=== PATIENT | male | born 1950 | race Caucasian/White ===

== ENCOUNTER 2018-04-09 09:00 | Inpatient (IN) ==
[~2018-04-09 09:00] MED LIST: ASPIRIN EC 81 MG TABLET PO SCH; CARVEDILOL 3.125 MG TABLET PO SCH; CHLORHEXIDINE 0.12% ORAL RINSE 60 ML BOTTLE SWISH/SPIT SCH; CHLORHEXIDINE 4% SOLN 118 ML BOTTLE TOP SCH; DEXTROSE 50% 25 GM/50 ML VIAL IV PRN; GABAPENTIN 100 MG CAPSULE PO SCH; GLUCAGON 1 MG VIAL IM PRN; LEVOTHYROXINE 125 MCG TABLET PO SCH; LISINOPRIL 20 MG TABLET PO SCH; MAGNESIUM OXIDE 400 MG TABLET PO SCH; METHYLDOPA 250 MG TABLET PO SCH; NIFEDIPINE 30 MG PO SCH; PANTOPRAZOLE 40 MG TABLET PO SCH; PITAVASTATIN 2 MG TABLET PO SCH; SODIUM CHLORIDE 0.9% 1,000 ML IV SCH
[2018-04-09 10:18] LABS: Basophils % 0.5 % (0.0-0.8); Eosinophils # 0.2 10*3/uL (0.0-0.87); Eosinophils % 2.7 % (0.00-10.9); Hematocrit 43.4 VOL% (42.0-52.0); Immature Granulocytes % 0.3 %; Immature Granulocytes Absolute 0.02 #; Lymphocytes # 1.5 10*3/uL (1.4-4.0); Lymphocytes % 25.8 % (21.2-54.2); Mean Corpuscular HGB Conc 34.6 GM/DL (32-36); Mean Corpuscular Hemoglobin 31 PG (27-34); Mean Corpuscular Volume 89.1 FL (87-102); Mean Platelet Volume 9.1 FL (9.6-12.0); Monocytes # 0.7 10*3/uL (0.11-0.8); Monocytes % 11.3 % (1.7-12.7); Neutrophils # 3.5 10*3/uL (1.4-7.4); Neutrophils % 59.4 % (38.7-73.9); Platelet Count 215 T/CUMM (130-400); Red Blood Count 4.87 MC/CUMM (3.8-5.5); Red Cell Distribution Width 12.1 % (9.3-17.3); White Blood Count 5.9 T/CUMM (4-12)
[2018-04-09 10:28] LABS: ABG Base Excess 2.1 MMOL/L (-2.5-2.5); ABG HCO3 26.2 MMOL/L (20-26); ABG Oxygen Saturation 93.4 % (95-100); ABG PCO2 44.8 MM HG (35-48); ABG PH 7.397 (7.35-7.45); ABG PO2 68.8 MM HG (80-95); ABG TCO2 23.4 MMOL/L (23-27)
[2018-04-09 10:43] LABS: Albumin 3.3 G/DL (3.4-5.0); Bilirubin,Total 0.5 MG/DL (0.2-1.0); Calcium 8.8 MG/DL (8.5-10.1); Osmolality,Calculated 284.1 MOS/KG (273-304); Potassium 4.5 MMOL/L (3.5-5.1); Total Protein 6.1 G/DL (6.4-8.3)
[2018-04-09] MEDS ORDERED: GLUCAGON 1 MG VIAL IM PRN (15:06)
[2018-04-09] MEDS ORDERED: DEXTROSE 50% 25 GM/50 ML VIAL IV PRN (15:06)
[2018-04-09] MEDS: CHLORHEXIDINE 4% SOLN 118 ML BOTTLE TOP SCH ×2 (15:22→21:30)
[2018-04-09] MEDS ORDERED: SODIUM CHLORIDE 0.9% 1,000 ML IV SCH (15:30)
[2018-04-09] MEDS: PANTOPRAZOLE 40 MG TABLET PO SCH (16:25)
[2018-04-09] MEDS ORDERED: ASPIRIN EC 81 MG TABLET PO SCH (21:00)
[2018-04-09] MEDS: METHYLDOPA 250 MG TABLET PO SCH (21:23)
[2018-04-09] MEDS: GABAPENTIN 300 MG CAPSULE PO SCH (21:23)
[2018-04-09] MEDS: CARVEDILOL 3.125 MG TABLET PO SCH (21:23)
[2018-04-09] MEDS: LISINOPRIL 20 MG TABLET PO SCH (21:23)
[2018-04-09] MEDS: CHLORHEXIDINE 0.12% ORAL RINSE 60 ML BOTTLE SWISH/SPIT SCH (21:24)
[2018-04-09] MEDS ORDERED: ZOLPIDEM 5 MG TABLET PO ONE (21:30)
[2018-04-10] MEDS: CHLORHEXIDINE 4% SOLN 118 ML BOTTLE TOP SCH ×2 (05:00→08:01)
[2018-04-10] MEDS ORDERED: HEPARIN/NACL 0.9% 2 UNITS/ML 500 ML IV ONE (05:29)
[2018-04-10] MEDS ORDERED: PHENYLEPHRINE DRIP 20 MG/250 ML PREMIX IV ONE (05:29)
[2018-04-10] MEDS ORDERED: CALCIUM CHLORIDE 1,000 MG/10 ML VIAL IV ONE (05:29)
[2018-04-10] MEDS ORDERED: SODIUM CHLORIDE 0.9% 100 ML IV ONE (05:30)
[2018-04-10] MEDS ORDERED: VECURONIUM 10 MG VIAL IV ONE (05:30)
[2018-04-10] MEDS ORDERED: MIDAZOLAM 10 MG/2 ML VIAL ONE (05:30)
[2018-04-10] MEDS ORDERED: LACTATED RINGERS 1,000 ML IV ONE (05:30)
[2018-04-10] MEDS ORDERED: ETOMIDATE 40 MG/20 ML VIAL IV ONE (05:30)
[2018-04-10] MEDS ORDERED: PANTOPRAZOLE 40 MG TABLET PO ONE (05:30)
[2018-04-10] MEDS ORDERED: AMINOCAPROIC ACID 5,000 MG/20 ML VIAL IV ONE (05:30)
[2018-04-10] MEDS ORDERED: DIAZEPAM 5 MG TABLET PO ONE (05:30)
[2018-04-10] MEDS ORDERED: SUFentanil 250 MCG/5 ML AMP ONE (05:30)
[2018-04-10] MEDS ORDERED: NITROGLYCERIN DRIP 50 MG/250 ML BOTTLE IV ONE (05:30)
[2018-04-10] MEDS ORDERED: SODIUM CHLORIDE 0.9% 1,000 ML IV ONE (05:30)
[2018-04-10] MEDS ORDERED: SODIUM CHLORIDE 0.9% 250 ML IV ONE (05:30)
[2018-04-10] MEDS ORDERED: ePHEDrine 50 MG/ML AMP ONE (05:31)
[2018-04-10] MEDS ORDERED: PAPAVERINE 60 MG/2 ML VIAL ONE (05:35)
[2018-04-10] MEDS ORDERED: VANCOMYCIN 1,000 MG VIAL ONE (05:36)
[2018-04-10] MEDS: METHYLDOPA 250 MG TABLET PO SCH ×2 (05:55→08:01)
[2018-04-10] MEDS: LISINOPRIL 20 MG TABLET PO SCH ×2 (05:55→08:01)
[2018-04-10] MEDS: CARVEDILOL 3.125 MG TABLET PO SCH ×2 (05:56→08:01)
[2018-04-10] MEDS ORDERED: LEVOTHYROXINE 125 MCG TABLET PO SCH (06:30)
[2018-04-10] MEDS: CEFUROXIME INJ 1,500 MG in SYRINGE 1 EACH IV ONE ×2 (07:20→08:02)
[2018-04-10 07:48] LABS: ABG Base Excess 2.4 MMOL/L (-2.5-2.5); ABG HCO3 26.6 MMOL/L (20-26); ABG Oxygen Saturation 99.8 % (95-100); ABG PCO2 39.7 MM HG (35-48); ABG PH 7.435 (7.35-7.45); ABG TCO2 22.8 MMOL/L (23-27); Glucose Heart Surgery 94 MG/DL (74-106); Hematocrit Heart Surgery 44.2 PERCENT (42-52); Hemoglobin Heart Surgery 14.4 G/DL (14.0-18.0); Ionized Calcium Arterial 1.15 MMOL/L (1.21-1.46); PCO2 Patient Temp Arterial 39.7 MMHG; PH Patient Temp Arterial 7.435; Patient Temperature 37 CELCIUS; Potassium Heart/CVR 3.9 MMOL/L (3.5-5.1); Sodium Heart/CVR 141 MMOL/L (135-145)
[2018-04-10] MEDS: GABAPENTIN 300 MG CAPSULE PO SCH (08:01)
[2018-04-10] MEDS: CHLORHEXIDINE 0.12% ORAL RINSE 60 ML BOTTLE SWISH/SPIT SCH ×2 (08:01→20:54)
[2018-04-10] MEDS: PANTOPRAZOLE 40 MG TABLET PO SCH (08:02)
[2018-04-10 08:28] LABS: Apearance,Urine CLEAR (Clear); Bilirubin,Urine Negative (Negative); Blood, Urine Negative (Negative); Glucose,Urine (UA) Negative (Negative); Ketones,Urine Negative (Negative); Mucus,Urine Occasional /LPF (Occasional); Nitrite,Urine Negative (Negative); Protein,Urine Negative; RBC,Urine 1 /HPF (0-4); Urine Color Yellow (Yellow); Urine Specific Gravity 1.013 (1.001-1.035); Urine Urobilinogen < 2.0 EU/DL (0.2-1.0); WBC,Urine <1 /HPF (0-6)
[2018-04-10] MEDS ORDERED: MAGNESIUM OXIDE 400 MG TABLET PO SCH (09:00)
[2018-04-10] MEDS ORDERED: PITAVASTATIN 2 MG TABLET PO SCH (09:00)
[2018-04-10 09:05] LABS: Hematocrit Heart Surgery 30.9 PERCENT (42-52); PCO2 Patient Temp Venous 35.8 MM HG; PH Patient Temp Venous 7.467; PO2 Patient Temp Venous 40.1 MM HG; Potassium Heart/CVR 4.7 MMOL/L (3.5-5.1); VBG Base Excess 2.4 MEQ/L (0-4); VBG HCO3 26.3 MEQ/L (24-28); VBG Oxygen Saturation 83.2 %; VBG PCO2 39.4 MMHG (41-51); VBG PH 7.437
[2018-04-10] MEDS ORDERED: FAMOTIDINE 20 MG/2 ML VIAL IV ONE (09:17)
[2018-04-10] MEDS ORDERED: diphenhydrAMINE 50 MG/1 ML VIAL ONE (09:17)
[2018-04-10 09:36] LABS: Hematocrit Heart Surgery 34.4 PERCENT (42-52); Hemoglobin Heart Surgery 11.2 G/DL (14.0-18.0); PCO2 Patient Temp Venous 29.9 MM HG; PH Patient Temp Venous 7.53; PO2 Patient Temp Venous 36.2 MM HG; Potassium Heart/CVR 4.6 MMOL/L (3.5-5.1); VBG Base Excess 2.8 MEQ/L (0-4); VBG HCO3 26.6 MEQ/L (24-28); VBG Oxygen Saturation 83.4 %; VBG PCO2 34.6 MMHG (41-51); VBG PH 7.484; VBG PO2 44.6 MMHG (17-40)
[2018-04-10] MEDS ORDERED: PHENYLEPHRINE DRIP 40 MG/250 ML PREMIX IV ONE (10:08)
[2018-04-10] MEDS ORDERED: CALCIUM CHLORIDE 1,000 MG/10 ML SYRINGE IV ONE (10:08)
[2018-04-10] MEDS ORDERED: SODIUM BICARBONATE 50 MEQ/50 ML SYRINGE IV ONE ×2 (10:09→10:21)
[2018-04-10] MEDS ORDERED: MAGNESIUM SULFATE 10 GM/20 ML VIAL IV ONE (10:21)
[2018-04-10] MEDS ORDERED: ALBUMIN 25% 25 GM/100 ML VIAL IV ONE (10:21)
[2018-04-10] MEDS ORDERED: PROTAMINE SULFATE 250 MG/25 ML VIAL IV ONE (10:21)
[2018-04-10] MEDS ORDERED: DEXTROSE 5% KCL 20 MEQ 20 MEQ/1,000 ML BAG IV ONE (10:21)
[2018-04-10] MEDS ORDERED: methylPREDNISolone SOD SUC 1,000 MG/8 ML VIAL ONE (10:22)
[2018-04-10] MEDS ORDERED: PROTAMINE SULFATE 50 MG/5 ML VIAL IV ONE (10:22)
[2018-04-10] MEDS ORDERED: FUROSEMIDE 20 MG/2 ML VIAL ONE (10:22)
[2018-04-10] MEDS ORDERED: MANNITOL 12.5 GM/50 ML VIAL IV ONE (10:22)
[2018-04-10] MEDS ORDERED: HEPARIN 10,000 UNIT/10 ML VIAL ONE (10:22)
[2018-04-10 10:30] LABS: ABG Base Excess 2.6 MMOL/L (-2.5-2.5); ABG HCO3 26.7 MMOL/L (20-26); ABG Oxygen Saturation 99.7 % (95-100); ABG PCO2 36.6 MM HG (35-48); ABG PH 7.462 (7.35-7.45); Glucose Heart Surgery 182 MG/DL (74-106); Hematocrit Heart Surgery 37.7 PERCENT (42-52); Hemoglobin Heart Surgery 12.3 G/DL (14.0-18.0); Ionized Calcium Arterial 1.03 MMOL/L (1.21-1.46); PCO2 Patient Temp Arterial 36.6 MMHG; PH Patient Temp Arterial 7.462; Patient Temperature 37 CELCIUS; Potassium Heart/CVR 4.4 MMOL/L (3.5-5.1); Sodium Heart/CVR 137 MMOL/L (135-145)
[2018-04-10] MEDS ORDERED: THROMBIN TOPICAL (RECOMBINANT) 5,000 UNIT VIAL TOP ONE (10:31)
[2018-04-10] MEDS ORDERED: POTASSIUM CHLORIDE RIDER 100 ML IV ONE (10:56)
[2018-04-10] MEDS: LACTATED RINGERS 1,000 ML IV PRN ×2 (11:30→14:28)
[2018-04-10] MEDS ORDERED: SEVOFLURANE 1 UNIT/15 MINUTE INH ONE (11:33)
[2018-04-10] MEDS ORDERED: LACTATED RINGERS 250 ML IV PRN (11:35)
[2018-04-10] MEDS ORDERED: NITROPRUSSIDE 100 MG in DEXTROSE 5% 250 ML IV PRN (11:35)
[2018-04-10] MEDS ORDERED: SODIUM CHLORIDE 0.45% 1,000 ML IV SCH ×2 (11:35)
[2018-04-10] MEDS ORDERED: ACETAMINOPHEN 650 MG SUPP RECTAL PRN (11:35)
[2018-04-10] MEDS ORDERED: MAGNESIUM SULF RIDER 2 GM in PREMIX 1 EACH IV PRN (11:35)
[2018-04-10] MEDS ORDERED: PHENYLEPHRINE DRIP 40 MG/250 ML PREMIX IV PRN (11:35)
[2018-04-10] MEDS ORDERED: DEXTROSE 50% 25 GM/50 ML VIAL IV PRN ×2 (11:35)
[2018-04-10] MEDS ORDERED: MIDAZOLAM 10 MG/2 ML VIAL IV PRN (11:35)
[2018-04-10] MEDS ORDERED: VECURONIUM 10 MG VIAL IV PRN ×2 (11:35)
[2018-04-10] MEDS ORDERED: INSULIN REGULAR 100 UNIT/ML IV PRN (11:35)
[2018-04-10] MEDS ORDERED: MORPHINE 10 MG/1 ML VIAL IV PRN (11:35)
[2018-04-10] MEDS ORDERED: MAGNESIUM SULF RIDER 4 GM in PREMIX 1 EACH IV PRN (11:35)
[2018-04-10] MEDS ORDERED: MIDAZOLAM 2 MG/2 ML VIAL IV PRN (11:35)
[2018-04-10] MEDS ORDERED: CALCIUM CHLORIDE 1,000 MG/10 ML SYRINGE IV PRN (11:35)
[2018-04-10] MEDS ORDERED: INSULIN REGULAR 100 UNIT/ML IV ONE (11:35)
[2018-04-10] MEDS ORDERED: POTASSIUM CHLORIDE RIDER 10 MEQ in PREMIX 1 EACH IV PRN (11:35)
[2018-04-10] MEDS ORDERED: ONDANSETRON 4 MG/2 ML VIAL IV PRN (11:35)
[2018-04-10] MEDS ORDERED: INSULIN REGULAR DRIP 100 ML IV SCH (11:35)
[2018-04-10] MEDS ORDERED: NITROPRUSSIDE 50 MG/2 ML VIAL ONE (11:39)
[2018-04-10] MEDS: KETOROLAC 30 MG/1 ML VIAL IV SCH ×3 (11:56→23:15)
[2018-04-10 12:10] LABS: ABG Base Excess 1.3 MMOL/L (-2.5-2.5); ABG Oxygen Saturation 93.3 % (95-100); ABG PCO2 41.6 MM HG (35-48); ABG PH 7.414 (7.35-7.45); ABG PO2 74.3 MM HG (80-95); ABG TCO2 27.3 MMOL/L (23-27); Glucose Heart Surgery 131 MG/DL (74-106); Hemoglobin Heart Surgery 12.4 G/DL (14.0-18.0); Potassium Heart/CVR 3.4 MMOL/L (3.5-5.1)
[2018-04-10 12:13] LABS: Basophils % 0.2 % (0.0-0.8); Eosinophils # 0.1 10*3/uL (0.0-0.87); Eosinophils % 0.4 % (0.00-10.9); Hematocrit 33.6 VOL% (42.0-52.0); Hemoglobin 11.7 GM/DL (14.0-18.0); Immature Granulocytes Absolute 0.11 #; Lymphocytes # 0.9 10*3/uL (1.4-4.0); Lymphocytes % 7.5 % (21.2-54.2); Mean Corpuscular HGB Conc 34.8 GM/DL (32-36); Mean Corpuscular Hemoglobin 32 PG (27-34); Mean Corpuscular Volume 90.3 FL (87-102); Mean Platelet Volume 9.3 FL (9.6-12.0); Monocytes # 0.6 10*3/uL (0.11-0.8); Monocytes % 4.8 % (1.7-12.7); Neutrophils # 9.8 10*3/uL (1.4-7.4); Neutrophils % 86.1 % (38.7-73.9); Platelet Count 176 T/CUMM (130-400); Red Blood Count 3.72 MC/CUMM (3.8-5.5); Red Cell Distribution Width 12.2 % (9.3-17.3); White Blood Count 11.4 T/CUMM (4-12)
[2018-04-10 12:22] LABS: INR 1.1; PT Patient Result 11.4 SECS; Partial Thromboplastin Time 28.5 SECS (0-40)
[2018-04-10] MEDS: POTASSIUM CHLORIDE RIDER 20 MEQ in PREMIX 1 EACH IV PRN ×3 (12:43→21:39)
[2018-04-10 12:52] LABS: CKMB % 5.6 %
[2018-04-10 13:27] LABS: Albumin 3.1 G/DL (3.4-5.0); Calcium 8.9 MG/DL (8.5-10.1); Osmolality,Calculated 289.8 MOS/KG (273-304); Potassium 3.6 MMOL/L (3.5-5.1); Total Protein 5.5 G/DL (6.4-8.3)
[2018-04-10 13:57] LABS: ABG Base Excess 3.2 MMOL/L (-2.5-2.5); ABG HCO3 27.2 MMOL/L (20-26); ABG Oxygen Saturation 96.5 % (95-100); ABG PCO2 43.8 MM HG (35-48); ABG PH 7.416 (7.35-7.45); ABG PO2 85.8 MM HG (80-95); ABG TCO2 24.9 MMOL/L (23-27); Glucose Heart Surgery 161 MG/DL (74-106); Hematocrit Heart Surgery 37.5 PERCENT (42-52); Hemoglobin Heart Surgery 12.2 G/DL (14.0-18.0); Potassium Heart/CVR 4.5 MMOL/L (3.5-5.1)
[2018-04-10] MEDS: ALBUMIN 5% 12.5 GM in PREMIX 1 EACH IV PRN (16:55)
[2018-04-10] MEDS: MORPHINE 4 MG/1 ML VIAL IV PRN ×2 (16:56→20:21)
[2018-04-10 19:25] LABS: ABG Base Excess 1.5 MMOL/L (-2.5-2.5); ABG HCO3 25.7 MMOL/L (20-26); ABG Oxygen Saturation 97.7 % (95-100); ABG PCO2 43.7 MM HG (35-48); ABG PH 7.394 (7.35-7.45); ABG TCO2 23.8 MMOL/L (23-27); Glucose Heart Surgery 172 MG/DL (74-106); Hematocrit Heart Surgery 35.2 PERCENT (42-52); Hemoglobin Heart Surgery 11.4 G/DL (14.0-18.0); Potassium Heart/CVR 4.5 MMOL/L (3.5-5.1)
[2018-04-10] MEDS: CEFUROXIME INJ 1,500 MG in SYRINGE 1 EACH IV SCH (19:46)
[2018-04-10] MEDS ORDERED: FUROSEMIDE 40 MG/4 ML VIAL IV ONE (19:53)
[2018-04-10 19:58] LABS: CKMB % 6.2 %
[2018-04-10] MEDS: INSULIN REGULAR 100 UNIT/ML SUBCUT SCH ×2 (20:14→23:45)
[2018-04-10 21:31] LABS: ABG Base Excess 1.8 MMOL/L (-2.5-2.5); ABG PCO2 44.8 MM HG (35-48); ABG PH 7.391 (7.35-7.45); ABG PO2 85.3 MM HG (80-95); ABG TCO2 24.1 MMOL/L (23-27); Glucose Heart Surgery 183 MG/DL (74-106); Hematocrit Heart Surgery 37.3 PERCENT (42-52); Hemoglobin Heart Surgery 12.1 G/DL (14.0-18.0); Potassium Heart/CVR 4.4 MMOL/L (3.5-5.1)
[2018-04-11 00:28] LABS: ABG Base Excess 2.2 MMOL/L (-2.5-2.5); ABG HCO3 26.3 MMOL/L (20-26); ABG Oxygen Saturation 95.9 % (95-100); ABG PCO2 44.8 MM HG (35-48); ABG PH 7.397 (7.35-7.45); ABG PO2 81.8 MM HG (80-95); ABG TCO2 24.4 MMOL/L (23-27); Glucose Heart Surgery 176 MG/DL (74-106); Hematocrit Heart Surgery 36.8 PERCENT (42-52); Potassium Heart/CVR 4.4 MMOL/L (3.5-5.1)
[2018-04-11] MEDS: POTASSIUM CHLORIDE RIDER 20 MEQ in PREMIX 1 EACH IV PRN ×2 (00:50→05:20)
[2018-04-11] MEDS: MORPHINE 4 MG/1 ML VIAL IV PRN ×2 (01:53→03:41)
[2018-04-11 03:01] LABS: ABG Base Excess 2.3 MMOL/L (-2.5-2.5); ABG HCO3 26.4 MMOL/L (20-26); ABG Oxygen Saturation 97.9 % (95-100); ABG PCO2 35.6 MM HG (35-48); ABG PH 7.467 (7.35-7.45); ABG TCO2 22.7 MMOL/L (23-27); Glucose Heart Surgery 171 MG/DL (74-106); Hematocrit Heart Surgery 36.9 PERCENT (42-52); Potassium Heart/CVR 4.5 MMOL/L (3.5-5.1)
[2018-04-11 04:13] LABS: ABG Base Excess 1.7 MMOL/L (-2.5-2.5); ABG HCO3 25.9 MMOL/L (20-26); ABG Oxygen Saturation 94.9 % (95-100); ABG PO2 79.7 MM HG (80-95); ABG TCO2 27.1 MMOL/L (23-27); Glucose Heart Surgery 155 MG/DL (74-106); Hemoglobin Heart Surgery 12.6 G/DL (14.0-18.0); Potassium Heart/CVR 4.4 MMOL/L (3.5-5.1)
[2018-04-11 04:28] LABS: Basophils % 0.1 % (0.0-0.8); Hematocrit 34.4 VOL% (42.0-52.0); Hemoglobin 11.8 GM/DL (14.0-18.0); Immature Granulocytes % 0.4 %; Immature Granulocytes Absolute 0.07 #; Lymphocytes # 0.7 10*3/uL (1.4-4.0); Lymphocytes % 4.3 % (21.2-54.2); Mean Corpuscular HGB Conc 34.3 GM/DL (32-36); Mean Corpuscular Hemoglobin 31 PG (27-34); Mean Corpuscular Volume 90.8 FL (87-102); Mean Platelet Volume 9.7 FL (9.6-12.0); Monocytes # 0.7 10*3/uL (0.11-0.8); Monocytes % 4.3 % (1.7-12.7); Neutrophils # 14.2 10*3/uL (1.4-7.4); Neutrophils % 90.9 % (38.7-73.9); Platelet Count 178 T/CUMM (130-400); Red Blood Count 3.79 MC/CUMM (3.8-5.5); Red Cell Distribution Width 12.4 % (9.3-17.3); White Blood Count 15.6 T/CUMM (4-12)
[2018-04-11 04:50] LABS: Albumin 3.2 G/DL (3.4-5.0); Bilirubin,Direct 0.17 MG/DL (0.0-0.20); Bilirubin,Total 0.6 MG/DL (0.2-1.0); Calcium 8.5 MG/DL (8.5-10.1); Potassium 4.3 MMOL/L (3.5-5.1); Total Protein 5.9 G/DL (6.4-8.3)
[2018-04-11 04:53] LABS: CKMB % 5.4 %
[2018-04-11] MEDS: KETOROLAC 30 MG/1 ML VIAL IV SCH ×4 (04:54→22:31)
[2018-04-11] MEDS: INSULIN REGULAR 100 UNIT/ML SUBCUT SCH ×2 (04:56→07:33)
[2018-04-11] MEDS: LACTATED RINGERS 1,000 ML IV PRN (05:01)
[2018-04-11 05:11] LABS: Band Neutrophils 2 % (0-10); Lymphocytes 4 % (20-55); Segmented Neutrophils 92 % (50-85); Total Cells Counted 100
[2018-04-11 05:12] LABS: Platelet Estimate Normal
[2018-04-11] MEDS ORDERED: FUROSEMIDE 40 MG/4 ML VIAL IV ONE (05:30)
[2018-04-11] MEDS: ALBUMIN 5% 12.5 GM in PREMIX 1 EACH IV PRN (06:15)
[2018-04-11] MEDS: CEFUROXIME INJ 1,500 MG in SYRINGE 1 EACH IV SCH (06:34)
[2018-04-11] MEDS: CHLORHEXIDINE 0.12% ORAL RINSE 60 ML BOTTLE SWISH/SPIT SCH ×3 (08:53→20:49)
[2018-04-11] MEDS ORDERED: ACETAMINOPHEN 325 MG TABLET PO PRN (10:27)
[2018-04-11] MEDS ORDERED: ONDANSETRON 4 MG/2 ML VIAL IV PRN (10:27)
[2018-04-11] MEDS ORDERED: POTASSIUM CHLORIDE 20 MEQ TABLET PO PRN (10:27)
[2018-04-11] MEDS ORDERED: SODIUM CHLOR 0.45% KCL 20 MEQ 20 MEQ/1,000 ML BAG IV SCH (10:27)
[2018-04-11] MEDS ORDERED: MAGNESIUM HYDROXIDE SUSP 30 ML UDCUP PO PRN (10:27)
[2018-04-11] MEDS ORDERED: ALUMINUM/MAGNES/SIMETH MAX STR 30 ML UDCUP PO PRN (10:27)
[2018-04-11] MEDS ORDERED: MAGNESIUM SULF RIDER 2 GM in PREMIX 1 EACH IV PRN (10:27)
[2018-04-11] MEDS ORDERED: GLUCAGON 1 MG VIAL IM PRN ×2 (10:27)
[2018-04-11] MEDS ORDERED: MAGNESIUM SULF RIDER 4 GM in PREMIX 1 EACH IV PRN (10:27)
[2018-04-11] MEDS ORDERED: MORPHINE 4 MG/1 ML VIAL IV PRN (10:27)
[2018-04-11] MEDS ORDERED: DEXTROSE 50% 25 GM/50 ML VIAL IV PRN ×2 (10:27)
[2018-04-11] MEDS ORDERED: NITROGLYCERIN SL 0.4 MG TABLET SL PRN (10:27)
[2018-04-11] MEDS: CARVEDILOL 3.125 MG TABLET PO SCH ×2 (11:00→17:28)
[2018-04-11] MEDS: FERROUS SULFATE 325 MG TABLET PO SCH (11:00)
[2018-04-11] MEDS: PANTOPRAZOLE 40 MG TABLET PO SCH (11:00)
[2018-04-11] MEDS: GABAPENTIN 300 MG CAPSULE PO SCH ×2 (11:01→20:49)
[2018-04-11] MEDS: LISINOPRIL 20 MG TABLET PO SCH (11:01)
[2018-04-11] MEDS: DOCUSATE SODIUM 100 MG CAPSULE PO SCH (11:01)
[2018-04-11] MEDS: ASPIRIN EC 325 MG TABLET PO SCH (11:01)
[2018-04-11] MEDS: oxyCODONE/ACETAMINOPHEN 5-325 MG TABLET PO PRN ×2 (11:07→20:49)
[2018-04-11] MEDS: METHYLDOPA 250 MG TABLET PO SCH (20:49)
[2018-04-12] MEDS: KETOROLAC 30 MG/1 ML VIAL IV SCH ×4 (04:44→22:49)
[2018-04-12 05:27] LABS: Basophils % 0.1 % (0.0-0.8); Hematocrit 30.5 VOL% (42.0-52.0); Hemoglobin 10.2 GM/DL (14.0-18.0); Immature Granulocytes % 0.8 %; Immature Granulocytes Absolute 0.15 #; Lymphocytes # 0.9 10*3/uL (1.4-4.0); Lymphocytes % 5.1 % (21.2-54.2); Mean Corpuscular HGB Conc 33.4 GM/DL (32-36); Mean Corpuscular Hemoglobin 31 PG (27-34); Mean Corpuscular Volume 91.3 FL (87-102); Mean Platelet Volume 10.3 FL (9.6-12.0); Monocytes # 1.4 10*3/uL (0.11-0.8); Monocytes % 7.8 % (1.7-12.7); Neutrophils # 15.8 10*3/uL (1.4-7.4); Neutrophils % 86.2 % (38.7-73.9); Platelet Count 179 T/CUMM (130-400); Red Blood Count 3.34 MC/CUMM (3.8-5.5); Red Cell Distribution Width 12.8 % (9.3-17.3); White Blood Count 18.4 T/CUMM (4-12)
[2018-04-12 05:55] LABS: Alanine Aminotransferase 18 U/L (16-61); Albumin 2.7 G/DL (3.4-5.0); Alkaline Phosphatase 60 U/L (45-117); Aspartate Amino Transferase 33 U/L (0-37); Bilirubin,Direct < 0.100 MG/DL (0.0-0.20); Bilirubin,Indirect 0.3 MG/DL (0.0-1.0); Bilirubin,Total < 0.39 MG/DL (0.2-1.0); Blood Urea Nitrogen 32 MG/DL (7-18); CKMB % 1.9 %; Glucose 141 MG/DL (74-106); Osmolality,Calculated 289.3 MOS/KG (273-304); Potassium 4.9 MMOL/L (3.5-5.1); Sodium 141 MMOL/L (136-145); Total Protein 5.2 G/DL (6.4-8.3)
[2018-04-12] MEDS ORDERED: FUROSEMIDE 40 MG/4 ML VIAL IV ONE (06:00)
[2018-04-12] MEDS: LEVOTHYROXINE 125 MCG TABLET PO SCH (06:50)
[2018-04-12] MEDS: DOCUSATE SODIUM 100 MG CAPSULE PO SCH (09:30)
[2018-04-12] MEDS: APIXABAN 5 MG TABLET PO SCH ×2 (09:30→21:04)
[2018-04-12] MEDS: MAGNESIUM OXIDE 400 MG TABLET PO SCH (09:30)
[2018-04-12] MEDS: GABAPENTIN 300 MG CAPSULE PO SCH ×2 (09:30→21:04)
[2018-04-12] MEDS: PANTOPRAZOLE 40 MG TABLET PO SCH (09:30)
[2018-04-12] MEDS: LISINOPRIL 20 MG TABLET PO SCH (09:30)
[2018-04-12] MEDS: ASPIRIN EC 325 MG TABLET PO SCH (09:30)
[2018-04-12] MEDS: METHYLDOPA 250 MG TABLET PO SCH ×2 (09:30→21:04)
[2018-04-12] MEDS: FERROUS SULFATE 325 MG TABLET PO SCH (09:30)
[2018-04-12] MEDS: CARVEDILOL 3.125 MG TABLET PO SCH ×2 (09:31→17:07)
[2018-04-12] MEDS: CHLORHEXIDINE 0.12% ORAL RINSE 60 ML BOTTLE SWISH/SPIT SCH ×2 (09:36→21:06)
[2018-04-12] MEDS: oxyCODONE/ACETAMINOPHEN 5-325 MG TABLET PO PRN ×2 (13:18→21:04)
[2018-04-12] MEDS: ZALEPLON 5 MG CAPSULE PO PRN (22:49)
[2018-04-13] MEDS: KETOROLAC 30 MG/1 ML VIAL IV SCH ×4 (04:24→21:21)
[2018-04-13 05:01] LABS: Basophils % 0.2 % (0.0-0.8); Eosinophils # 0.1 10*3/uL (0.0-0.87); Eosinophils % 0.6 % (0.00-10.9); Hematocrit 32.7 VOL% (42.0-52.0); Immature Granulocytes % 1.1 %; Immature Granulocytes Absolute 0.13 #; Lymphocytes # 1.9 10*3/uL (1.4-4.0); Lymphocytes % 15.7 % (21.2-54.2); Mean Corpuscular HGB Conc 33.6 GM/DL (32-36); Mean Corpuscular Hemoglobin 31 PG (27-34); Mean Corpuscular Volume 91.9 FL (87-102); Monocytes # 1.4 10*3/uL (0.11-0.8); Monocytes % 11.2 % (1.7-12.7); Neutrophils # 8.8 10*3/uL (1.4-7.4); Neutrophils % 71.2 % (38.7-73.9); Platelet Count 181 T/CUMM (130-400); Red Blood Count 3.56 MC/CUMM (3.8-5.5); Red Cell Distribution Width 12.8 % (9.3-17.3); White Blood Count 12.3 T/CUMM (4-12)
[2018-04-13 05:23] LABS: Alanine Aminotransferase 16 U/L (16-61); Albumin 2.8 G/DL (3.4-5.0); Alkaline Phosphatase 62 U/L (45-117); Aspartate Amino Transferase 24 U/L (0-37); Bilirubin,Indirect 0.4 MG/DL (0.0-1.0); Blood Urea Nitrogen 40 MG/DL (7-18); Calcium 7.6 MG/DL (8.5-10.1); Glucose 97 MG/DL (74-106); Osmolality,Calculated 297.7 MOS/KG (273-304); Potassium 4.2 MMOL/L (3.5-5.1); Sodium 145 MMOL/L (136-145); Total Protein 5.6 G/DL (6.4-8.3)
[2018-04-13] MEDS: LEVOTHYROXINE 125 MCG TABLET PO SCH (06:07)
[2018-04-13] MEDS: DOCUSATE SODIUM 100 MG CAPSULE PO SCH (08:55)
[2018-04-13] MEDS: CARVEDILOL 3.125 MG TABLET PO SCH ×2 (08:55→18:05)
[2018-04-13] MEDS: GABAPENTIN 300 MG CAPSULE PO SCH ×2 (08:55→21:17)
[2018-04-13] MEDS: APIXABAN 5 MG TABLET PO SCH ×2 (08:55→21:17)
[2018-04-13] MEDS: MAGNESIUM OXIDE 400 MG TABLET PO SCH (08:55)
[2018-04-13] MEDS: ASPIRIN EC 325 MG TABLET PO SCH (08:55)
[2018-04-13] MEDS: PANTOPRAZOLE 40 MG TABLET PO SCH (08:55)
[2018-04-13] MEDS: FERROUS SULFATE 325 MG TABLET PO SCH (08:56)
[2018-04-13] MEDS: LISINOPRIL 20 MG TABLET PO SCH (08:56)
[2018-04-13] MEDS: CHLORHEXIDINE 0.12% ORAL RINSE 60 ML BOTTLE SWISH/SPIT SCH ×2 (08:56→21:17)
[2018-04-13] MEDS: METHYLDOPA 250 MG TABLET PO SCH ×2 (08:59→21:21)
[2018-04-13] MEDS: EZETIMIBE 10 MG TABLET PO SCH (12:54)
[2018-04-13] MEDS: oxyCODONE/ACETAMINOPHEN 5-325 MG TABLET PO PRN ×2 (15:29→19:26)
[2018-04-13] MEDS: ZALEPLON 5 MG CAPSULE PO PRN (21:21)
[2018-04-14] MEDS: KETOROLAC 30 MG/1 ML VIAL IV SCH (04:20)
[2018-04-14 04:59] LABS: Basophils % 0.3 % (0.0-0.8); Eosinophils # 0.3 10*3/uL (0.0-0.87); Hematocrit 32.5 VOL% (42.0-52.0); Hemoglobin 10.6 GM/DL (14.0-18.0); Immature Granulocytes Absolute 0.11 #; Lymphocytes # 1.7 10*3/uL (1.4-4.0); Lymphocytes % 16.6 % (21.2-54.2); Mean Corpuscular HGB Conc 32.6 GM/DL (32-36); Mean Corpuscular Hemoglobin 30 PG (27-34); Mean Corpuscular Volume 93.1 FL (87-102); Mean Platelet Volume 9.8 FL (9.6-12.0); Monocytes # 1.1 10*3/uL (0.11-0.8); Monocytes % 10.5 % (1.7-12.7); Neutrophils # 7.2 10*3/uL (1.4-7.4); Neutrophils % 68.6 % (38.7-73.9); Platelet Count 187 T/CUMM (130-400); Red Blood Count 3.49 MC/CUMM (3.8-5.5); Red Cell Distribution Width 12.7 % (9.3-17.3); White Blood Count 10.5 T/CUMM (4-12)
[2018-04-14 05:26] LABS: Osmolality,Calculated 290.1 MOS/KG (273-304); Potassium 4.1 MMOL/L (3.5-5.1)
[2018-04-14] MEDS: LEVOTHYROXINE 125 MCG TABLET PO SCH (06:11)
[2018-04-14] MEDS: EZETIMIBE 10 MG TABLET PO SCH (08:56)
[2018-04-14] MEDS: PANTOPRAZOLE 40 MG TABLET PO SCH (08:56)
[2018-04-14] MEDS: FERROUS SULFATE 325 MG TABLET PO SCH (08:57)
[2018-04-14] MEDS: CARVEDILOL 3.125 MG TABLET PO SCH ×2 (08:57→16:29)
[2018-04-14] MEDS: LISINOPRIL 20 MG TABLET PO SCH (08:57)
[2018-04-14] MEDS: MAGNESIUM OXIDE 400 MG TABLET PO SCH (08:57)
[2018-04-14] MEDS: ASPIRIN EC 325 MG TABLET PO SCH (08:57)
[2018-04-14] MEDS: DOCUSATE SODIUM 100 MG CAPSULE PO SCH (08:57)
[2018-04-14] MEDS: APIXABAN 5 MG TABLET PO SCH ×2 (08:58→21:22)
[2018-04-14] MEDS: GABAPENTIN 300 MG CAPSULE PO SCH ×2 (08:58→21:22)
[2018-04-14] MEDS: CHLORHEXIDINE 0.12% ORAL RINSE 60 ML BOTTLE SWISH/SPIT SCH ×2 (08:59→21:29)
[2018-04-14] MEDS: METHYLDOPA 250 MG TABLET PO SCH (08:59)
[2018-04-14] MEDS: oxyCODONE/ACETAMINOPHEN 5-325 MG TABLET PO PRN ×2 (10:52→21:22)
[2018-04-14] MEDS: ZALEPLON 5 MG CAPSULE PO PRN (21:22)
[2018-04-14] MEDS: SERTRALINE 25 MG TABLET PO SCH (21:22)
[2018-04-15] MEDS: oxyCODONE/ACETAMINOPHEN 5-325 MG TABLET PO PRN ×2 (04:52→20:47)
[2018-04-15 04:54] LABS: Basophils % 0.2 % (0.0-0.8); Eosinophils # 0.4 10*3/uL (0.0-0.87); Eosinophils % 3.8 % (0.00-10.9); Hematocrit 30.9 VOL% (42.0-52.0); Hemoglobin 10.5 GM/DL (14.0-18.0); Immature Granulocytes % 1.1 %; Immature Granulocytes Absolute 0.11 #; Lymphocytes # 1.5 10*3/uL (1.4-4.0); Lymphocytes % 14.5 % (21.2-54.2); Mean Corpuscular Hemoglobin 31 PG (27-34); Mean Corpuscular Volume 90.1 FL (87-102); Mean Platelet Volume 9.7 FL (9.6-12.0); Monocytes # 1.2 10*3/uL (0.11-0.8); Monocytes % 11.4 % (1.7-12.7); Neutrophils # 7.1 10*3/uL (1.4-7.4); Platelet Count 214 T/CUMM (130-400); Red Blood Count 3.43 MC/CUMM (3.8-5.5); Red Cell Distribution Width 12.4 % (9.3-17.3); White Blood Count 10.3 T/CUMM (4-12)
[2018-04-15 05:04] LABS: Calcium 7.8 MG/DL (8.5-10.1); Osmolality,Calculated 285.3 MOS/KG (273-304); Potassium 4.1 MMOL/L (3.5-5.1)
[2018-04-15 05:09] LABS: Risk Ratio 2.47; VLDL CHOLESTEROL 11.8 MG/DL
[2018-04-15 05:12] LABS: Alanine Aminotransferase 30 U/L (16-61); Albumin 2.2 G/DL (3.4-5.0); Alkaline Phosphatase 106 U/L (45-117); Aspartate Amino Transferase 31 U/L (0-37); Bilirubin,Indirect 1.1 MG/DL (0.0-1.0); Blood Urea Nitrogen 23 MG/DL (7-18); Calcium 7.8 MG/DL (8.5-10.1); Glucose 102 MG/DL (74-106); Osmolality,Calculated 284.3 MOS/KG (273-304); Potassium 4.1 MMOL/L (3.5-5.1); Sodium 141 MMOL/L (136-145); Total Protein 5.4 G/DL (6.4-8.3)
[2018-04-15] MEDS ORDERED: FUROSEMIDE 40 MG/4 ML VIAL IV ONE (06:18)
[2018-04-15] MEDS: LEVOTHYROXINE 125 MCG TABLET PO SCH (06:35)
[2018-04-15] MEDS: DOCUSATE SODIUM 100 MG CAPSULE PO SCH (09:05)
[2018-04-15] MEDS: PANTOPRAZOLE 40 MG TABLET PO SCH (09:05)
[2018-04-15] MEDS: ASPIRIN EC 325 MG TABLET PO SCH (09:05)
[2018-04-15] MEDS: EZETIMIBE 10 MG TABLET PO SCH (09:05)
[2018-04-15] MEDS: LISINOPRIL 20 MG TABLET PO SCH (09:05)
[2018-04-15] MEDS: FERROUS SULFATE 325 MG TABLET PO SCH (09:06)
[2018-04-15] MEDS: APIXABAN 5 MG TABLET PO SCH ×2 (09:06→20:47)
[2018-04-15] MEDS: GABAPENTIN 300 MG CAPSULE PO SCH ×2 (09:06→20:47)
[2018-04-15] MEDS: MAGNESIUM OXIDE 400 MG TABLET PO SCH (09:06)
[2018-04-15] MEDS: CARVEDILOL 3.125 MG TABLET PO SCH ×2 (09:06→17:36)
[2018-04-15] MEDS: CHLORHEXIDINE 0.12% ORAL RINSE 60 ML BOTTLE SWISH/SPIT SCH ×2 (09:09→20:48)
[2018-04-15] MEDS: ALBUTEROL 2.5 MG/3 ML NEB RESP TX SCH (15:09)
[2018-04-15] MEDS: SERTRALINE 25 MG TABLET PO SCH (20:47)
[2018-04-15] MEDS: ZALEPLON 5 MG CAPSULE PO PRN (20:47)
[2018-04-15] MEDS ORDERED: DILTIAZEM 50 MG/10 ML VIAL IV ONE ×2 (21:02→21:10)
[2018-04-15] MEDS: SOTALOL 80 MG TABLET PO SCH (21:27)
[2018-04-15] MEDS ORDERED: DILTIAZEM INJ 100 MG in SODIUM CHLORIDE 0.9% 100 ML IV SCH (21:30)
[2018-04-16] MEDS: ALBUTEROL 2.5 MG/3 ML NEB RESP TX SCH ×3 (00:28→14:16)
[2018-04-16 05:20] LABS: Basophils % 0.2 % (0.0-0.8); Eosinophils # 0.4 10*3/uL (0.0-0.87); Hematocrit 31.1 VOL% (42.0-52.0); Hemoglobin 10.5 GM/DL (14.0-18.0); Immature Granulocytes % 0.9 %; Lymphocytes # 1.4 10*3/uL (1.4-4.0); Mean Corpuscular HGB Conc 33.8 GM/DL (32-36); Mean Corpuscular Hemoglobin 31 PG (27-34); Mean Corpuscular Volume 92.3 FL (87-102); Mean Platelet Volume 9.2 FL (9.6-12.0); Monocytes # 1.3 10*3/uL (0.11-0.8); Monocytes % 11.3 % (1.7-12.7); Neutrophils # 7.8 10*3/uL (1.4-7.4); Neutrophils % 70.6 % (38.7-73.9); Platelet Count 239 T/CUMM (130-400); Red Blood Count 3.37 MC/CUMM (3.8-5.5); Red Cell Distribution Width 12.5 % (9.3-17.3); White Blood Count 11.1 T/CUMM (4-12)
[2018-04-16 05:53] LABS: Calcium 8.2 MG/DL (8.5-10.1); Osmolality,Calculated 283.3 MOS/KG (273-304); Potassium 4.1 MMOL/L (3.5-5.1)
[2018-04-16] MEDS: LEVOTHYROXINE 125 MCG TABLET PO SCH (05:54)
[2018-04-16 06:00] LABS: Alanine Aminotransferase 34 U/L (16-61); Albumin 2.2 G/DL (3.4-5.0); Alkaline Phosphatase 123 U/L (45-117); Aspartate Amino Transferase 32 U/L (0-37); Bilirubin,Indirect 0.8 MG/DL (0.0-1.0); Blood Urea Nitrogen 18 MG/DL (7-18); Calcium 8.1 MG/DL (8.5-10.1); Glucose 108 MG/DL (74-106); Osmolality,Calculated 283.3 MOS/KG (273-304); Potassium 4.1 MMOL/L (3.5-5.1); Sodium 141 MMOL/L (136-145); Total Protein 5.6 G/DL (6.4-8.3)
[2018-04-16 06:01] LABS: Troponin I 0.533 NG/ML (0.00-0.045)
[2018-04-16] MEDS ORDERED: FUROSEMIDE 40 MG/4 ML VIAL IV ONE (07:56)
[2018-04-16] MEDS: SOTALOL 80 MG TABLET PO SCH ×2 (09:44→21:56)
[2018-04-16] MEDS: FERROUS SULFATE 325 MG TABLET PO SCH (09:44)
[2018-04-16] MEDS: ASPIRIN EC 81 MG TABLET PO SCH (09:45)
[2018-04-16] MEDS: MAGNESIUM OXIDE 400 MG TABLET PO SCH (09:45)
[2018-04-16] MEDS: APIXABAN 5 MG TABLET PO SCH ×2 (09:45→21:56)
[2018-04-16] MEDS: POTASSIUM CHLORIDE 20 MEQ TABLET PO SCH ×2 (09:45→21:55)
[2018-04-16] MEDS: DOCUSATE SODIUM 100 MG CAPSULE PO SCH (09:45)
[2018-04-16] MEDS: PANTOPRAZOLE 40 MG TABLET PO SCH (09:45)
[2018-04-16] MEDS: GABAPENTIN 300 MG CAPSULE PO SCH ×2 (09:45→21:55)
[2018-04-16] MEDS: EZETIMIBE 10 MG TABLET PO SCH (09:45)
[2018-04-16] MEDS: CHLORHEXIDINE 0.12% ORAL RINSE 60 ML BOTTLE SWISH/SPIT SCH ×2 (09:46→22:01)
[2018-04-16] MEDS ORDERED: PROPOFOL 200 MG/20 ML VIAL IV ONE (11:13)
[2018-04-16] MEDS: SERTRALINE 25 MG TABLET PO SCH (21:56)
[2018-04-16] MEDS: ZALEPLON 5 MG CAPSULE PO PRN (21:56)
[2018-04-16] MEDS: oxyCODONE/ACETAMINOPHEN 5-325 MG TABLET PO PRN (22:00)
[2018-04-17] MEDS: ALBUTEROL 2.5 MG/3 ML NEB RESP TX SCH ×3 (00:12→14:55)
[2018-04-17] MEDS: LEVOTHYROXINE 125 MCG TABLET PO SCH (05:37)
[2018-04-17 05:45] LABS: Basophils % 0.3 % (0.0-0.8); Eosinophils # 0.6 10*3/uL (0.0-0.87); Eosinophils % 4.9 % (0.00-10.9); Hematocrit 34.5 VOL% (42.0-52.0); Hemoglobin 11.5 GM/DL (14.0-18.0); Immature Granulocytes % 1.3 %; Immature Granulocytes Absolute 0.15 #; Lymphocytes # 1.9 10*3/uL (1.4-4.0); Mean Corpuscular HGB Conc 33.3 GM/DL (32-36); Mean Corpuscular Hemoglobin 31 PG (27-34); Mean Corpuscular Volume 91.5 FL (87-102); Mean Platelet Volume 9.5 FL (9.6-12.0); Monocytes # 1.3 10*3/uL (0.11-0.8); Monocytes % 10.9 % (1.7-12.7); Neutrophils % 66.6 % (38.7-73.9); Platelet Count 339 T/CUMM (130-400); Red Blood Count 3.77 MC/CUMM (3.8-5.5); Red Cell Distribution Width 12.5 % (9.3-17.3); White Blood Count 11.9 T/CUMM (4-12)
[2018-04-17 06:05] LABS: Calcium 8.7 MG/DL (8.5-10.1); Osmolality,Calculated 283.4 MOS/KG (273-304); Potassium 4.4 MMOL/L (3.5-5.1)
[2018-04-17] MEDS: oxyCODONE/ACETAMINOPHEN 5-325 MG TABLET PO PRN (06:51)
[2018-04-17] MEDS: MAGNESIUM OXIDE 400 MG TABLET PO SCH (09:22)
[2018-04-17] MEDS: FERROUS SULFATE 325 MG TABLET PO SCH (09:22)
[2018-04-17] MEDS: DOCUSATE SODIUM 100 MG CAPSULE PO SCH (09:22)
[2018-04-17] MEDS: GABAPENTIN 300 MG CAPSULE PO SCH (09:23)
[2018-04-17] MEDS: POTASSIUM CHLORIDE 20 MEQ TABLET PO SCH (09:24)
[2018-04-17] MEDS: ASPIRIN EC 81 MG TABLET PO SCH (09:24)
[2018-04-17] MEDS: EZETIMIBE 10 MG TABLET PO SCH (09:24)
[2018-04-17] MEDS: PANTOPRAZOLE 40 MG TABLET PO SCH (09:24)
[2018-04-17] MEDS: SOTALOL 80 MG TABLET PO SCH (09:24)
[2018-04-17] MEDS: APIXABAN 5 MG TABLET PO SCH (09:24)
[2018-04-17] MEDS: CHLORHEXIDINE 0.12% ORAL RINSE 60 ML BOTTLE SWISH/SPIT SCH (09:25)
[2018-04-17 11:27] VITALS: BP 121/70
== END 2018-04-17 16:40 | disposition home health service (06) | DRG 235 ==
LOC: N.2W 09:19 → N.TELES 10:49 → N.CVR 04-10 07:49 → N.TELES 04-11 10:31